=== PATIENT | male | born 1960 | race Caucasian/White ===

== ENCOUNTER 2019-09-18 11:48 | Emergency (ER) | payer OTHER ==
[2019-09-18] MEDS ORDERED: LIDOCAINE 1% 10 ML VIAL INJ ONE (11:49)
[2019-09-18 12:07] VITALS: TEMP 97.4
--- NOTE | 2019-09-18 12:07 | ED.PDOC ---
History of Present Illness - General Chief Complaint: Laceration Stated Complaint: Laceration to L arm Time Seen by Provider: 09/18/19 11:56 Source: patient, RN notes reviewed, Vital Signs reviewed Exam Limitations: no limitations Additional Information: This is a 58-year-old gentleman who presents to the emergency department with a small laceration to the left arm. This occurred while he was getting a deer. His tetanus is up-to-date. He did have a vagal reaction prior to coming in. States that he feels fine now. Denies any other complaints. Review of Systems - Review of Systems Constitutional: States: no symptoms reported Skin: States: other - laceration to the left arm Physical Exam - Physical Exam General Appearance: Alert, No apparent distress Eyes, Ears, Nose, Throat Exam: PERRL/EOMI Neck: non-tender, full range of motion, normal inspection Cardiovascular/Chest: normal peripheral pulses, regular rate, rhythm, no edema Respiratory: chest non-tender, lungs clear, normal breath sounds, no respiratory distress, no accessory muscle use Skin Exam: other - 1 cm laceration to the left forearm flexor surface good hem ostasis Skin Problem Location: upper extremities Progress - Progress Progress: 09/18/19 12:09 MDM: Laceration needed repair Procedures - Laceration/Wound Repair Left Upper Volar Wound Length (cm): 1 Wound's Depth, Shape: superficial, linear Wound Explored: no foreign body removed Irrigated w/ Saline (cc's): 20 Betadine Prep?: Yes Anesthesia: Lidocaine w/ Epi Volume Anesthetic (cc's): 3 Wound Repaired With: sutures Suture Size/Type: 4:0, prolene Number of Sutures: 3 Layer Closure?: No Sterile Dressing Applied?: Yes Splint Applied?: No Sling Applied?: No Progress: patient tolerated procedure well. Departure - Departure Clinical Impression: Laceration Time of Disposition: 12:10 Disposition: Discharge to Home or Self Care Condition: Good Departure Forms: ED Discharge - Pt. Copy, Patient Portal Self Enrollment Additional Instructions: follow-up in clinic for suture removal in 8 days. May return to the ER if need be. Keep wound clean and dry over the next 3 days. Wash with soap and water twice a day. Watch for any signs of infection and notify PCP or ER if needed.
[2019-09-18 12:20] VITALS: BP 127/72; O2SAT 97
== END 2019-09-18 12:16 | disposition home or self-care (01) ==
LOC: ER 11:48
DX: S51.812A Laceration without foreign body of left forearm, initial encounter (principal); W45.8XXA Other foreign body or object entering through skin, initial encounter; Y93.89 Activity, other specified; Y92.9 Unspecified place or not applicable